=== PATIENT | female | born 1970 | race Two or more races ===

== ENCOUNTER 2017-09-14 05:48 | Inpatient (IN) | payer MEDICARE, BC ==
[~2017-09-14] VITALS: Ht 165.1 cm; Wt 74.8 kg
[2017-09-14] VITALS (11 sets, daily range): BP systolic 133–164; BP diastolic 68–91
[~2017-09-14 05:48] MED LIST: LISINOPRIL10 MG ORAL; NORVASC10 MG ORAL; OXYCODONE HCL30 MG ORAL; PROZAC40 MG ORAL
[2017-09-14] MEDS ORDERED: Propofol 200mg/20ml IV ONE (06:28)
[2017-09-14] MEDS ORDERED: ADDERAL20 MG ORAL (06:28)
[2017-09-14] MEDS ORDERED: fentaNYL 100 mcg/2 mL IV ONE ×2 (06:28→10:17)
[2017-09-14] MEDS ORDERED: Lidocaine 1% MPF 10mg/ml 5ml ONE (06:28)
[2017-09-14] MEDS ORDERED: Ketamine 500mg Inj ONE (06:32)
[2017-09-14] MEDS ORDERED: EPINEPHrine 1mg/1ml Amp ONE (06:39)
[2017-09-14] MEDS ORDERED: Thrombin 5000 units spray kit TOPIC ONE (06:40)
[2017-09-14] MEDS ORDERED: Vancomycin 1gm inj IVPB ONE (06:40)
[2017-09-14] MEDS ORDERED: Thrombin 5000 units TOPIC ONE ×2 (06:40→11:47)
[2017-09-14] MEDS ORDERED: Bupivacaine 0.5% Inj 30 ml vial INJ ONE (06:41)
[2017-09-14] MEDS ORDERED: Gelfoam Absorbable 1gm powder pkt TOPIC ONE (06:41)
[2017-09-14] MEDS ORDERED: Bacitracin 50000 Units Vial ONE (06:41)
[2017-09-14] MEDS ORDERED: Zemuron 50mg/5ml Inj IV ONE (07:08)
[2017-09-14] MEDS ORDERED: Succinylcholine 20mg/ml 10ml vial ONE (07:09)
--- NOTE | 2017-09-14 07:23 | Anethesia Preoperative Eval ---
Anesthesia Pre-op PMH/ROS General Date of Evaluation: Sep 14, 2017 Time of Evaluation: 06:50 Anesthesiologist: ASA Score: ASA 2 Mallampati Score Class I : Soft palate, uvula, fauces, pillars visible Class II: Soft palate, uvula, fauces visible Class III: Soft palate, base of uvula visible Class IV: Only hard plate visible Mallampati Classification: Class II Surgeon: gay Diagnosis: cervical herniation Surgical Procedure: c4,5c5,6c7,8 acdf Anesthesia History: PONV Social History: current smoker Family History: no anesthesia problems Allergies: Coded Allergies: No Known Allergies (Unverified , 09/14/17) Past Medical History Cardiovascular: Reports: HTN; Denies: CAD, NE, valve dz, arrhythmia, other Pulmonary: Denies: asthma, COPD, OLIMPIA, other Gastrointestinal/Genitourinary: Denies: GERD, CRI, ESRD, other Neurologic/Psychiatric: Reports: depression/anxiety; Denies: dementia, CVA, TIA, other Endocrine: Denies: DM, hypothyroidism, steroids, other HEENT: Denies: cataract (L), cataract (R), glaucoma, [place]I (L), KO[place]I (R), other Hematology/Immune: Denies: anemia, DVT, bleeding disorder, other Musculoskeletal/Integumentary: Reports: other - cervical herniation, neck pain , left arm numbness PSxH Narrative: c/s x 3 Anesthesia Pre-op Phys. Exam Physician Exam Last Vital Signs Date Time Temp Pulse Resp B/P (MAP) Pulse Ox O2 Delivery O2 Flow Rate FiO2 09/14/17 06:27 97.0 61 18 148/68 98 Room Air 97.0 Constitutional: other - anxiety Neurologic: other - numbness in left arm and legs Cardiovascular: RRR Respiratory: CTA Gastrointestinal: S/NT/ND Airway Exam Mallampati Score: Class II MO: full ROM: limited Teeth: intact Dentures: no upper, no lower Anesthesia Pre-op A/P Labs Urine Test Test 09/14/17 06:00 Urine HCG, Qualitative Negative (NEGATIVE) Risk Assessment & Plan Assessment: asa 2, okay to proceed Plan: ETGA Status Change Before Surgery: No Pre-Antibiotics Drug: ancef 2 grams Time Given: 08:45 Za Pennington M.D. Sep 14, 2017 07:23
[2017-09-14] MEDS ORDERED: Dexamethasone 4mg/ml vial ONE (07:45)
--- NOTE | 2017-09-14 07:49 | Pre-Procedure Note/Attestation ---
Pre-Procedure Note/Attestation Complete Prior to Procedure Planned Procedure: right Procedure Narrative: C4/5, C5/6 and C6/7 ACDF Indications for Procedure Pre-Operative Diagnosis: Cervical radiculapathy, Cervial disk hernation, Neck pain, Attestation I attest that I discussed the nature of the procedure; its benefits; risks and complications; and alternatives (and the risks and benefits of such alternatives ), prior to the procedure, with the patient (or the patient's legal public health representative). I attest that, if there was a reasonable possibility of needing a blood transfusion, the patient (or the patient's legal public health representative) was given the [place] Department of Health Services standardized written summary, pursuant to the [place] Blood Safety Act ([place] Health and Safety Code # 1645, as amended). I attest that I re-evaluated the patient just prior to the surgery and that there has been no change in the patient's H&P, except as documented below: OLIVIA DUMONT M.D. Sep 14, 2017 07:49
[2017-09-14] MEDS ORDERED: NS Irrig 1000ml ONE (08:00)
[2017-09-14] MEDS ORDERED: Sterile Water Irrig 1000ml IRRIG ONE (08:00)
[2017-09-14] MEDS ORDERED: Propofol 1,000mg/ 100ml btl IV ONE (08:00)
[2017-09-14] MEDS ORDERED: Phenylephrine 10mg/ml Vial ONE (09:34)
--- NOTE | 2017-09-14 12:42 | Brief Operative Note ---
Immediate Post Operative Note Operative Note Chief Complaint: Neck pain, radiculapathy Pre-op Diagnosis: Cervical radiculapathy, Cervical disk hernation, Neck pain, Post-op Diagnosis: same as pre-op Findings: consistent w/pre-op dx studies Surgeon: [place] Amusement Machine Mechanic: Rosa Anesthesiologist: Anesthesia: general Specimen: yes Complications: none Condition: stable Fluids: 700 Estimated Blood Loss: volume - 50 Drains: none Packing: None Implant(s) used?: Yes - Nuvasive stand alone OLIVIA DUMONT M.D. Sep 14, 2017 12:42
[2017-09-14] MEDS ORDERED: LR 1000ml 1,000 ML IVLG SCH (12:49)
[2017-09-14] MEDS ORDERED: Midazolam 2mg/2ml Inj IVP PRN (13:00)
[2017-09-14] MEDS ORDERED: Hydromorphone 0.5mg/0.5ml inj IVP PRN (13:00)
[2017-09-14] MEDS ORDERED: DiphenhydrAMINE 50mg/ml Inj IVP PRN (13:00)
[2017-09-14] MEDS ORDERED: Labetalol 5mg/ml 20ml vial IV PRN (13:00)
--- NOTE | 2017-09-14 13:28 | Immediate Post-Op Evaluation ---
Immediate Post-Op Evalulation Immediate Post-Op Evalulation Procedure: ACDF C4,5 C5,6 C6,7 Date of Evaluation: Sep 14, 2017 Time of Evaluation: 13:04 IV Fluids: 700ml Blood Products: 0 Estimated Blood Loss: 50ml Urinary Output: 100ml Blood Pressure Diastolic: 151 Pulse Rate: 86 Respiratory Rate: 16 O2 Sat by Pulse Oximetry: 100 Temperature (Fahrenheit): 98.6 Pain Score (1-10): 4 Nausea: No Vomiting: No Complications none Patient Status: awake, patent, none Hydration Status: adequate Drug: ancef 2 grams Given Within 1 Hr of Incision: Yes Time Given: 08:45 Za Pennington M.D. Sep 14, 2017 13:28
[2017-09-14] MEDS: fentaNYL 100 mcg/2 mL IV PRN ×2 (14:14→14:27)
[2017-09-14] MEDS ORDERED: Norco 5mg/325mg tab ORAL PRN (15:00)
[2017-09-14] MEDS ORDERED: Morphine Sulfate 2mg/ml Inj IVP PRN (15:00)
[2017-09-14] MEDS: D5 1/2NS 1,000 ML IV SCH (15:18)
--- NOTE | 2017-09-14 15:57 | Diagnostic Imaging Report ---
Indication: Pain, intraoperative imaging Technique: Intraoperative images Comparison: none Findings: Intraoperative images initially demonstrate a localizing tool projected anterior to the level of the C6-7 disc. Subsequent images demonstrate placement of anterior fusion hardware at C4-5, C5-6, and C6-7 Impression: Intraoperative imaging, as described
[2017-09-14] MEDS: ceFAZolin sod 1 GM in D5W 110 ML IV SCH (18:15)
[2017-09-14] MEDS: Hydromorphone 0.5mg/0.5ml inj SUBQ PRN ×2 (18:16→21:41)
--- NOTE | 2017-09-14 18:16 | 48 Hour Post Anesthesia Eval ---
Post Anesthesia Evaluation Procedure: ACDF C4,5 C5,6 C6,7 Date of Evaluation: Sep 14, 2017 Time of Evaluation: 15:00 Blood Pressure Systolic: 139 0: 84 Pulse Rate: 81 Respiratory Rate: 20 Temperature (Fahrenheit): 98.7 O2 Sat by Pulse Oximetry: 100 Airway: patent Nausea: No Vomiting: No Pain Intensity: 5 Hydration Status: adequate Mental Status/LOC: patient returned to baseline Post-Anesthesia Complications: none Follow-up care needed: N/A Za Pennington M.D. Sep 14, 2017 18:16
[2017-09-14] MEDS ORDERED: Chloraseptic Spray 20mL Bottle ORAL PRN (18:30)
[2017-09-14] MEDS ORDERED: Chloraseptic Spray 20mL Bottle ORAL ONE (18:30)
[2017-09-14] MEDS: oxyCONTIN 20mg tab ORAL SCH (18:53)
[2017-09-14] MEDS: oxyCODONE 15mg IR tab ORAL PRN (20:14)
--- NOTE | 2017-09-14 22:44 | Consultation ---
DATE OF CONSULTATION: 09/14/2017 CONSULTING PHYSICIAN: Cain Edmonds M.D. REFERRING PHYSICIAN: Dewayne Yates M.D. REASON FOR CONSULTATION: Acute pain consult. HISTORY OF PRESENT ILLNESS: Dear Dr. Yates, Thank you kindly for consulting me to evaluate and render an opinion as to how to proceed in the management of the patient's acute postoperative cervical spine pain after multiple level cervical spine instrumentation surgery. 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 She has been on high dose oxycodone instant release tablets for the past three years. She admits to using 30 mg tablets upwards of 6 to 7 times per day until the day leading up to surgery. She also has ADHD and is an active tobacco user. In addition to anxiety and depression, she also has a history of migraine headaches. You consulted me to help with her pain control which was unrelieved despite multiple trials of morphine and [place]. I saw the patient at bedside with her and [id number]. I spoke with the hospital pharmacist, Danny along with the nurse RN, Jennifer and yourself, Dr. Yates. I performed detailed History and Physical examination. I advised the following analgesic plan to help improve the patient's pain complaints. PAST MEDICAL HISTORY: 1. Acute postoperative cervical spine pain status post multiple level cervical spine instrumentation surgery by Dr. Yates, September 2017. 2. Retired police inspector. 3. Anxiety and depression. 4. Active tobacco usage. 5. Hypertension. 6. Migraine headaches. 7. ADHD. 8. Hypertension. PAST SURGICAL HISTORY: section x3. MEDICATIONS: Medication administration record reviewed. Medications include Norvasc, Adderall, Prozac, lisinopril, oxycodone instant release 30 mg tablets at least 6 times per day. ALLERGIES: No known drug allergies. REVIEW OF SYSTEMS: Per attending physician. PHYSICAL EXAMINATION: VITAL SIGNS: Age 46. Height 165 cm and weight 75 kg. VITAL SIGNS: Afebrile, pulse 81, respirations 20, blood pressure 139/84, oxygen saturation 100% on room air. HEENT: Normocephalic and atraumatic. NECK: Neck dressing appears clean and dry. Significant pain with any movement or range of motion. EXTREMITIES: Moving all extremities x4 with 5/5 dorsiflexion, 5/5 plantar flexion in bilateral lower extremities PSYCH: Significant agitation and anxiety evident. The patient is accompanied at the bedside by her and [id number]. CHEST: Clear to auscultation. HEART: Regular rate and rhythm. ABDOMEN: Soft. NEUROLOGIC: Detailed neurologic exam per Dr. Yaets. The patient is breathing comfortably. LABORATORY AND DIAGNOSTIC DATA: Diagnostic testing from September 07, 2017 shows glucose 77, BUN 22, creatinine 0.8, sodium 136, potassium 4.2 chloride 104, , calcium 9.3. PTT 26 and INR 1.0. White count 7, hematocrit 35, platelets 373. Urinalysis is negative. Total protein 6.6, AST 35, ALT 68, alkaline phosphatase 134, total bilirubin 0.3. A 12-lead EKG shows normal sinus rhythm, ventricular rate 57, no evidence for acute cardiac ischemia. Preoperative chest x-ray shows no acute chest wall findings, no cardiopulmonary disease dated September 07, 2017. IMPRESSION: 1. Acute postoperative cervical spine pain status post multiple level cervical spine instrumentation surgery by Dr. Yates, September 2017. 2. Retired police inspector. 3. Anxiety and depression. 4. Active tobacco usage. 5. Hypertension. 6. Migraine headaches. 7. ADHD. 8. Hypertension. TREATMENT RECOMMENDATIONS: The patient has three year history of high dose oxycodone instant release usage for her neck pain after multiple level cervical spine fusion surgery today, it is not surprising that her pain levels have been difficult to manage due to the significant tachyphylaxis which has likely developed due to chronic opioid usage, previous dosings with [place] and morphine has been ineffective. I spoke with the hospital pharmacist to immediately dose the patient with 2 mg subcutaneous dose of Dilaudid as a catch-up dose. The patient recently discontinued smoking 48 hours ago. I explained this to the patient that I would certainly recommend that she discontinue smoking, abrupt tobacco cessation during acute postoperative period. It often makes the pain symptoms extremely difficult to manage with the anxiety exacerbations. I would not use her ADHD medication at this time but I would restart her Prozac at a normal daily timing. I would continue the subcutaneous Dilaudid every three hours p.r.n. for severe breakthrough pains. The patient uses oxycodone instant release routinely at 30 mg dose. I will increase the dosing to 40 mg which I will dose every three hours p.r.n. for moderate pain. Hopefully nicotine patch application of 21 mg daily starting this evening will be helpful as well. I have also asked the nurse to place Chloraseptic spray bottle at the bedside to help with topical sore throat complaints. I will empirically place the patient on Protonix 40 mg nightly for GI ulcer prophylaxis. I have also ordered p.r.n. dose of Mylanta 30 mL q. 6 h in case of any GERD symptom exacerbation. Because of her long using oxycodone, I believe in-hospital usage of OxyContin 20 mg q.12 hours might help somewhat. For some baseline analgesia, I believe 20 mg starting dose should be very easily tolerated in this woman who takes upwards of 180 mg of instant release oxycodone on a daily basis chronically. Currently her outpatient primary physician has been prescribing her narcotics and I will defer to the outpatient doctor to continue her narcotic adjustments which in the outpatient setting. Cain Edmonds M.D. DR: Sujata JOB#: [id number] CC:
[2017-09-15] VITALS: BP 139/74
[2017-09-15] MEDS: ceFAZolin sod 1 GM in D5W 110 ML IV SCH ×2 (00:35→08:22)
[2017-09-15] MEDS: D5 1/2NS 1,000 ML IV SCH (01:09)
[2017-09-15] MEDS: oxyCODONE 5mg IR tab ORAL PRN ×2 (01:09→05:40)
[2017-09-15 04:22] VITALS: BP 134/87
[2017-09-15] MEDS: Hydromorphone 0.5mg/0.5ml inj SUBQ PRN ×2 (04:24→12:16)
[2017-09-15] MEDS: oxyCODONE 15mg IR tab ORAL PRN (05:41)
[2017-09-15] MEDS: oxyCONTIN 20mg tab ORAL SCH (07:00)
--- NOTE | 2017-09-15 07:41 | 48 Hour Post Anesthesia Eval ---
Post Anesthesia Evaluation Procedure: ACDF C4,5 C5,6 C6,7 Date of Evaluation: Sep 15, 2017 Time of Evaluation: 07:40 Blood Pressure Systolic: 138 0: 76 Pulse Rate: 68 Respiratory Rate: 22 Temperature (Fahrenheit): 97.6 O2 Sat by Pulse Oximetry: 98 Airway: patent Nausea: No Vomiting: No Pain Intensity: 3 Hydration Status: adequate Cardiopulmonary Status: stable Mental Status/LOC: patient returned to baseline Follow-up Care/Observations: n/a Post-Anesthesia Complications: none Follow-up care needed: N/A Davis Lew MD Sep 15, 2017 07:41
[2017-09-15 08:00] VITALS: BP 128/80
[2017-09-15] MEDS ORDERED: oxyCODONE 5mg IR tab ORAL PRN (08:30)
[2017-09-15] MEDS ORDERED: Lisinopril 2.5mg tab ORAL SCH (09:00)
[2017-09-15] MEDS ORDERED: OXYCODONE HCL5 MG ORAL (10:04)
[2017-09-15] MEDS ORDERED: OXYCONTIN20 MG ORAL ×3 (10:06→10:11)
[2017-09-15 12:00] VITALS: BP 131/82
--- NOTE | 2017-09-15 16:30 | Progress Note ---
DATE: 09/15/2017 ACUTE PAIN MANAGEMENT PHYSICIAN PROGRESS NOTE MEDICATIONS: Medication administration record reviewed. Medications include Chloraseptic spray, Protonix, oxycodone, Zofran, NicoDerm patch, Zestril, Dilaudid, Prozac, Benadryl, Catapres, Norvasc, and Mylanta. LABORATORY STUDIES: No interval laboratory studies. OBJECTIVE: Vital signs within normal limits. Afebrile, pulse 69, respirations 22, blood pressure 134/87, and oxygen saturation 98% on room air. I saw the patient walking with the physical therapist, aMyur today. The patient is alert and oriented x3. Her neck wound appears clean and dry. With application of the nicotine patch, her anxiety levels have reduced considerably. She is swallowing, breathing, and phonating within normal limits. The [place] collar remains in place. The is dropping off the prescription I had provided for OxyContin and oxycodone for home usage. I spoke with the surgeon, Dr. Yates, who has cleared the patient for discharge as soon as her outpatient medication prescription has been dispensed. It would be impossible for the patient to discharge from the hospital without having oral pain medications for home usage. The patient's Prozac has been restarted for mood stabilization. She has tolerated OxyContin 20 mg without any over sedation. I did provide a short supply of OxyContin for home usage to help bridge her through the postsurgical window. She will follow up with her outpatient primary care physician for narcotic adjustments and refills. Per Dr. Yates, the surgeon, the patient does not need any postoperative antibiotics. I would expect discharge to home later today. Cain Edmonds M.D. DR: DIALLO JOB#: [id number] CC:
--- NOTE | 2017-09-15 19:00 | Discharge Summary ---
DATE OF ADMISSION: 09/14/2017 DATE OF DISCHARGE: 09/15/2017 ATTENDING PHYSICIAN AND SURGEON: Dewayne Yates M.D. CONSULTING PHYSICIAN: Cain Edmonds M.D., Pain Management. ADMITTING DIAGNOSES: 1. Cervical radiculopathy. 2. Cervical disc herniation. POSTOPERATIVE DIAGNOSES: 1. Cervical radiculopathy. 2. Cervical disc herniation. HOSPITAL COURSE: The patient was admitted for elective multilevel cervical spine fusion surgery on 09/14/2017. After uneventful surgery, the patient was transferred from the operating room to the recovery room. The patient did well and was transferred from the operating room to the orthopedic floor. Serial monitoring was performed of vital signs and neurologic function. The patient was training with physical therapy. The patient's pain was adequately controlled per Dr. Edmonds, who provided the a prescription for outpatient pain medication. The patient advanced her diet and ambulation. With vital signs stable, she is expected to discharge on 09/15/2017 to her without any adverse events or complications. Cain Edmonds M.D. DR: VIDHI JOB#: [id number] CC:
--- NOTE | 2017-09-16 13:32 | Discharge Summary ---
Discharge Summary Hospital Course Date of Admission Sep 14, 2017 at 05:48 Date of Discharge Sep 15, 2017 at 12:59 Admitting Diagnosis Cervical radiculopathy, Cervical disk herniation, Neck pain, HPI Radha Pacheco is a 46 year old female who was admitted on Sep 14, 2017 at 05:48 for Neck Pain,Cervical Disc Herniation/Radiculopathy. Patient was admitted for elective surgery Consultations dr Edmonds pain specialist Procedures s/p on 09/14/[address] Yates ACDF C4,5 C5,6 C6,7 Hospital Course s/p surgery course of recovery uneventful neurovascular intact pain management addressed, pain controlled pain specialist followed dressing c/d/i ambulated with PT/OT fall precautions maintained initially on IV fluid started on diet as tolerated able to tolerate soft diet throat lozenges when necessary antiemetics on board as needed voided freely bowel regimen instituted discharge instruction provided outpatient follow-up with surgeon as advised scripts provided by pain specialist FINAL DIAGNOSES Cervical radiculopathy, Cervical disk herniation, Neck pain, s/p ACDF C4,5 C5,6 C6,7 Discharge Medications Continued Medications: Oxycodone Hcl Er* (Oxycontin*) 20 Mg Tab.er.12h 20 MG ORAL EVERY 8 HOURS PRN for For Pain, #20 TAB (This prescription has been renewed) Oxycodone Hcl Ir* (Roxicodone Ir*) 5 Mg Tablet 30 MG ORAL Q4H PRN for For Pain, #75 TAB (This prescription has been renewed) Discharge Condition Upon Discharge: stable Discharge Disposition Patient was discharged to Home () Discharge Instructions Discharge Instructions Special Instructions I have been assigned to complete a D/C Summary on this account. I was not involved in the patient management Merlene Wilkins NP Sep 16, 2017 13:32
--- NOTE | 2017-09-17 04:45 | Operative Note - Dictated ---
DATE OF OPERATION: 09/14/2017 NOTE: POOR AUDIO PREOPERATIVE DIAGNOSES: 1. Neck pain. 2. Cervical spondylosis. 3. Cervical stenosis. 4. Bilateral upper extremity radiculopathy. 5. Spinal and cervical nerve compression. 6. Foraminal stenosis. OPERATIVE TITLE: 1. C4-5 anterior cervical discectomy and fusion. 2. C5-6 anterior cervical discectomy and fusion. 3. C7 anterior cervical discectomy and fusion. 4. C5-6 bilateral foraminotomy. 5. C4-5 bilateral foraminotomy. 6. C6-7 bilateral foraminotomy. 7. Placement of interbody prosthesis at C4-5. 8. Placement of interbody prosthesis at C5-6. 9. Placement of interbody at C6-7, C6-7 fusion. 10. C5-6 fusion. 11. C4-5 fusion. 12. Interpretation of intraoperative neuromonitoring of conduction studies and MEP. 13. Interpretation of triple phase MRI. 14. Intraoperative use and interpretation of the fluoroscope. 15. Use of the operating microscope. OPERATIVE SURGEON: Dewayne Yates M.D. VEGETABLE GRADER: Lizzie Lee M.D. ANESTHESIA: General endotracheal intubation. ANESTHESIOLOGIST: Dr. Pennington. INDICATION FOR SURGERY: The patient is a 46-year-old woman with a history of neck pain and bilateral upper extremity radiculopathy, particularly worse on the left, who on CT scan was shown to have disk herniation and foraminal stenosis at C4-5, C5-6, and C6-7 levels, concomitant radicular symptoms in all those distribution. The pain has been affecting the patient's activity of daily living and the patient has not been able to do for several weeks prior to being evaluated. Given the correlation of the MRI with the patient's neurological symptoms and discussion was held with the patient for a surgical intervention to relieve her pain. The risks and benefits of the operation including, but not limited to infection, CSF leak, numbness, weakness, paralysis, injury to the contents of the thoracic , injury to the esophagus, injury to the trachea, wound dehiscence, , stroke, coma, and were explained to the patient. She understood and wished to proceed. She was given plenty of opportunity to ask questions and all the questions were answered to her satisfaction. An informed consent was obtained. DESCRIPTION OF PROCEDURE: The patient was brought into the operating room where she was intubated by the Anesthesia team. After intubation, we proceeded to place a roll of cloth under the shoulder to provide for extension of the neck. A cross table fluoroscope was then done to carbon cleaner the level and we aimed at around the body of the C6 at our incision level as we planned to do at C4-5, C5-6, and C6-7 levels. The area was then prepped and draped in the usual sterile fashion. After a time-out was done, we proceeded to inject the . A 10-blade was used to make an incision going from the midline down to the medial edge of the sternocleidomastoid muscle. The Metzenbaum scissors was used to then undermine the platysma muscle and this was then isolated and divided sharply using the Metzenbaum scissors bipolar cautery. A Weitlaner retractor was used to keep the edges apart exposing the medial aspect of the sternocleidomastoid muscle using the blunt dissection just to go down the plane between that of the medial strap muscle making sure that the esophagus and trachea were medially and the thoracic sheath was worked laterally to identify the midline raphe of the spinal column identifying the longus colli muscle bilaterally. Once these were done, we proceeded to identify a disk space and view the medial to the disk space. A cross table fluoroscope was used to identify this and this happened to be the C5-6 disk level. We proceeded then to bring in our handheld retractors again and the monopolar Bovie cautery was used to undermine the longus colli muscle on either side of C5-6 vertebral disk interspace. A Shadow-Line retractor system was then used to anchor under the longus colli muscle keeping the soft tissue out of the operative field. Cloward retractor was then used to place into the body of C5-C6 and the retractor system was used to distract the disk space here. At this point, we proceeded then to start with our diskectomy using a combination of direct pituitary to remove as much disk as we can, also we accomplished the posterior disk osteophyte complex. At this point, a drill was used to drill down the disk osteophyte complex, so we encountered the ligament. At this point, a nail hook was used to undermine into the space to insinuate space between the posterior longitudinal ligament and the dura. A then was used to start dividing the posterior longitudinal ligament, removing it alongside with the remaining thin amount of osteophyte complex posteriorly. This was done until the dura was compressed. Next, attention was paid to the foramen on either side making sure that the Kerrison was used to follow the trajectory of the nerve to make sure that they are well decompressed removing bone around the nerve to make sure that we could feel a much more open foramen on either side. Once this was done, we proceeded to get hemostasis and once we had hemostasis, the next thing we did was then to bring in the fix trial and proceeded to impact that into the space. A was taken to determine our level as well. Once we determined that this was the appropriate size, we did contact with either endplate. Prior to this we had drilled and flattened this endplate to make sure that level. Once we knew that there was good contact with the endplate, we proceeded to remove that and the size 6 stem was packed with Osteocel and to determine our trajectory and the appropriate size screws were then used to place into the C5 vertebral body and two into the C6 vertebral body. At this point, again another external view cross table fluoroscope was obtained to adjust the position of the screws. Once this was done, attention was paid then next to the C6-7 level, again undermining the longus colli muscle on either side and putting the and moving the [place] pins to this level retracting this space and proceeding again to do a diskectomy and foraminotomy bilaterally and again another fix similar to the level above, another was also chosen and packed with Osteocel, again placing one screw in the C6 body in this case and two into the C7 body as well. From there, the fluoroscope was obtained also to change the direction and the positioning of as well as the screws. The same process then was repeated at the C4-5 level again undermining the longus colli muscle, doing the diskectomy followed by foraminotomy and then using again endplates and measurements using our trial, we proceeded then to again two screws are going down into C5 and then one screw up into C6 with the fluoroscope using it throughout the operation. We did a continuous multiple evoked potential plus neuromonitoring with EMG and nerve conduction study, were interpreted throughout the operation from and was done under the microscope as well. Once we had finished, we proceeded to take out the Shadow-Line retractor as well as the [place] pins and the area was thoroughly inspected and any bleeding that was found was stopped with a combination of bipolar cautery and bone wax, FloSeal, and the area was copiously irrigated and at this point, approximated the edges of the platysma muscle using a simple running stitch with 2-0 Vicryl sutures. The subcutaneous tissue was approximated with inverted simple interrupted sutures using 2-0 Vicryl in simple interrupted fashion. The skin then was approximated using 4-0 Monocryl. This was by Telfa followed by Tegaderm was placed on the patient's neck. At this point, the patient was placed in a cervical collar and taken to the recovery room in a stable fashion moving all extremities and following commands. Estimated blood loss for this case was about 50 mL. There were no complications. SPECIMEN: Growth disk from C4-5, C5-6, and C6-7, sent for pathology. Dewayne Yates M.D. DR: CINDY JOB#: [id number] CC:
== END 2017-09-15 12:59 | disposition home or self-care (01) | DRG 473 ==
LOC: SDSOVERFLO 05:48 → 3E 14:53
PROC: 0RG20A0 Fusion of 2 or more Cervical Vertebral Joints with Interbody Fusion Device, Anterior Approach, Anterior Column, Open Approach (ICD-10-PCS; principal; 2017-09-14 07:00)
PROC: 0RB30ZZ Excision of Cervical Vertebral Disc, Open Approach (ICD-10-PCS; principal; 2017-09-14 07:00)
PROC: 01N10ZZ Release Cervical Nerve, Open Approach (ICD-10-PCS; principal; 2017-09-14 07:00)
DX: M50.121 Cervical disc disorder at C4-C5 level with radiculopathy (principal); M47.22 Other spondylosis with radiculopathy, cervical region; M48.02 Spinal stenosis, cervical region; F41.8 Other specified anxiety disorders; F17.200 Nicotine dependence, unspecified, uncomplicated; I10 Essential (primary) hypertension; F90.9 Attention-deficit hyperactivity disorder, unspecified type; G89.18 Other acute postprocedural pain
CPT/HCPCS: 36415; 72040; 76001; 81025; 86850; 86900; 86901; 86920; 87081; 94003; 94150; J2250; J2370; J2405